=== PATIENT | female | born 1970 | race Caucasian/White ===

== ENCOUNTER 2016-11-29 19:32 | Emergency (ER) | payer SELFPAY ==
[~2016-11-29] VITALS: Ht 152.4 cm; Wt 74.4 kg
[~2016-11-29 19:32] MED LIST: BEN50 PO; KEN1O TOP
[2016-11-29 19:39] VITALS: Ht 152.4 cm; Wt 74.4 kg
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
[2016-11-29] MEDS ORDERED: IBUPROFEN 600 MG TAB PO ONE (20:30)
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
[2016-11-29] MEDS ORDERED: AMO500 PO (22:30)
[2016-11-29] MEDS ORDERED: IBUP-1542 PO (22:30)
== END 2016-11-29 22:59 | disposition home or self-care (01) ==
LOC: FTE 19:32
DX: S29.012A Strain of muscle and tendon of back wall of thorax, initial encounter (principal); S39.012A Strain of muscle, fascia and tendon of lower back, initial encounter; S93.401A Sprain of unspecified ligament of right ankle, initial encounter; V49.50XA Passenger injured in collision with unspecified motor vehicles in traffic accident, initial encounter
CPT/HCPCS: 72072; 72100; 73630